=== PATIENT | male | born 1960 | race Caucasian/White ===

== ENCOUNTER 2017-06-25 07:06 | Observation (INO) | payer MEDICARE, SELFPAY ==
[2017-06-25] VITALS (16 sets, daily range): BP systolic 90–188; BP diastolic 54–97; PULSE 57–80; RESP 11–16; TEMP 36.5–36.9; O2SAT 90–97; BMI 29.2; BMI 29.3
--- NOTE | 2017-06-25 07:16 | EKG12_ITS ---
Test Reason : CP Blood Pressure : / mmHG Vent. Rate : 069 BPM Atrial Rate : 069 BPM P-R Int : 146 ms QRS Dur : 142 ms QT Int : 438 ms P-R-T Axes : 151 182 177 degrees QTc Int : 469 ms Suspect arm lead reversal, interpretation assumes no reversal Unusual P axis, possible ectopic atrial rhythm Right bundle branch block Lateral infarct , age undetermined Inferior infarct , age undetermined Abnormal ECG Confirmed by MAX IQBAL, ESPINOZA ([id number]), society editor DANTE CEJA ([id number]) on 06/28/2017 2:00:10 PM Referred By: GRACIELA Confirmed By:ESPINOZA SANTANA MD
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
[2017-06-25 07:31] LABS: Absolute Lymphocyte Count 2.11 X10^3/ul (0.83-4.51); Absolute Neutrophil Count 6.5 X10^3/uL (2.0-7.7); Basophil# 0.02 X10^3/uL; Basophil% 0.2 % (0-1); Eosinophil# 0.09 X10^3/uL; Hematocrit 48.9 % (40-54); Hemoglobin 15.8 g/dl (13.0-16.5); Lymphocyte # 2.11 X10^3/ul (4.0); Lymphocyte % 22.6 % (19-41); Mean Corp Hgb Conc 32.3 g/gl (32-36); Mean Corpuscular Hgb 27.9 pg (27.0-32.0); Mean Corpuscular Volume 86.2 fL (80-94); Mean Platelet Vol. 11.1 fl (6.2-12.0); Monocyte# 0.59 X10^3/uL; Monocyte% 6.3 % (0-10); Neutrophil # 6.51 X10^3/uL (2.7-7.7); Neutrophil % 69.6 % (47-70); POSITIVE COUNT NO; POSITIVE DIFFERENTIAL NO; POSITIVE MORPHOLOGY NO; Platelet Count 189 K/mm3 (150-450); RBC Distribution Width CV 14.3 % (11.6-14.6); RBC Distribution Width SD 44.8 fl (35.1-43.9); Red Blood Count 5.67 M/mm3 (4.6-6.2); White Blood Count 9.4 K/mm3 (4.4-11.0)
[2017-06-25] MEDS: Aspirin 81 MG TAB.CHEW 324 MG PO (07:36)
--- NOTE | 2017-06-25 07:45 | RAD_ITS ---
STUDY: X-RAY CHEST REASON FOR EXAM: Male, 56 years old. Chest pain. TECHNIQUE: Single AP portable view of the chest. COMPARISON: None. FINDINGS: There are monitoring and support devices. There are small metallic densities that may be outside the patient There is elevation of the right hemidiaphragm. There is no focal infiltrate. There is no demonstrated pleural abnormality. Normal size heart. Normal mediastinum and federico. Normal visualized pulmonary arteries. Normal visualized aortic arch and descending thoracic aorta. There are diffuse degenerative changes of the visualized thoracic spine. Normal visualized ribs, clavicles, and shoulders. There is no demonstrated abnormality of the visualized soft tissue structures of the upper abdomen. RAD/Chest 1 View (Portable) IMPRESSION: Degenerative changes, as described above. No demonstrated acute cardiopulmonary process. Electronically Signed: Dario Roland MD at 8:27 EDT , Service support ,
[2017-06-25 07:46] LABS: Anion Gap 9 (5-15); BUN 15 mg/dL (7-18); BUN/Creat Ratio 18.7 RATIO (10-20); Calcium,Total 8.4 mg/dL (8.5-10.1); Chloride 107 mmol/L (98-107); EST Glomerular Filtration Rate 105 mL/min (>60); Est Glom Filt Rate - Afr Amer 127 mL/min (>60); Estimated Creatinine Clearance 108.51 ml/min; Glucose 144 mg/dL (74-106); Potassium 3.8 mmol/L (3.5-5.1); Sodium Level 141 mmol/L (136-145)
[2017-06-25] MEDS: proMETHazine 25 MG/ML Syringe 6.25 MG IV (07:48)
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
[2017-06-25 08:50] LABS: Prothrombin Time (Protime)PT. 13.2 SECONDS (11.7-14.9)
[2017-06-25 08:51] LABS: Partial Thromboplast Time 27.5 Seconds (24.1-36.2)
[2017-06-25] MEDS: Acetaminophen 500 MG Tablet 1000 MG PO (09:31)
[2017-06-25] MEDS: Heparin Injection 5,000 UNITS/ML Syringe 7500 UNITS IV (09:35)
[2017-06-25] MEDS: HEPARIN/D5w 25,000 UNITS 25,000 UNITS/250 ML IV.SOLN. 14 UNITS IV (09:35)
--- NOTE | 2017-06-25 10:09 | ECHOD_ITS ---
Reason For Study: ABN EKG Procedure This was a 2D Doppler, Color Flow transthoracic echocardiogram. Exam performed portable in patient room. Left Ventricle Normal size and thickness. The estimated ejection fraction is 65 %. Stage 1 diastolic dysfunction. No regional wall motion abnormalities noted. Right Ventricle Normal size and thickness. Normal systolic function. Atria Normal left atrium. Normal right atrium. Normal atrial septum. Mitral Valve The mitral valve is structurally normal. No prolapse or stenosis seen. Tricuspid Valve Normal tricuspid valve. Trivial tricuspid valve insufficiency. Right ventricular systolic pressure estimated to be 26 mmHg. Aortic Valve Trisinus/trileaflet aortic valve. Mild diffuse aortic valve thickening. Trivial aortic valve insufficiency. Pulmonic Valve The pulmonic valve is not well visualized. Great Vessels Normal aortic root. Normal arch. Normal inferior vena cava. Inferior vena cava collapse with sniff. Pericardium/Pleural No pericardial effusion. MMode/2D Measurements & Calculations LVIDd: 5.8 cm IVSd: 1.0 cm Ao root diam: 2.9 cm LVIDs: 3.9 cm LVPWd: 1.1 cm LA dimension: 4.0 cm RVDd: 3.3 cm FS: 33.8 % LAV(MOD-bp): 42.8 ml LA A4 area: 16.1 cm2 RA A4 area: 11.4 cm2 LAV(MOD-bp) Indexed: 19.9 ml/m2 LAV(MOD-sp2): 43.5 ml LAV(MOD-sp4): 40.4 ml Doppler Measurements & Calculations MV E max florin: 63.1 cm/sec Lat Peak E' Florin: 7.9 cm/sec Med Peak E' Florin: 7.8 cm/sec MV A max florin: 76.0 cm/sec E/E' lat: 7.9 E/E' med: 8.1 MV E/A: 0.83 Ao V2 max: 120.1 cm/sec LV V1 max: 110.4 cm/sec PA V2 max: 117.6 cm/sec Ao max P.8 mmHg LV V1 max P.9 mmHg TR max florin: 230.7 cm/sec TR max P.3 mmHg Interpretation Summary The estimated ejection fraction is 65 %. Stage 1 diastolic dysfunction. Trivial tricuspid valve insufficiency. Right ventricular systolic pressure estimated to be 26 mmHg. Trivial aortic valve insufficiency. There is no comparison study available. Ordering Physician: Sandeep Taveras Performed By: Kiah Khan, ABBY, RVT
[2017-06-25 10:21] LABS: D-Dimer Quantitative (DVT/PE) 0.34 FEU/ug/m (0.27-0.49)
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
[2017-06-25] MEDS: Metoprolol Tartrate 25 MG Tablet 12.5 MG PO ×2 (11:28→21:36)
[2017-06-25 12:13] LABS: Cholesterol 149 mg/dL (200); High Density Lipoprotein 44 mg/dL; Triglycerides 46 mg/dL; Very Low Density Lipoprotein 9 mg/dL (5-40)
[2017-06-25 15:54] LABS: Partial Thromboplast Time 125.9 Seconds (24.1-36.2)
[2017-06-25] MEDS: Atorvastatin Calcium 40 MG Tablet PO (21:36)
[2017-06-25] MEDS: Heparin Injection (Vial) 5,000 UNIT/ML VIAL IV (21:43)
[2017-06-26] VITALS (13 sets, daily range): BP systolic 135–155; BP diastolic 79–98; PULSE 59–75; RESP 16; TEMP 36.3–36.9; O2SAT 93–97
[2017-06-26 04:04] LABS: Hematocrit 47.3 % (40-54); Hemoglobin 15.1 g/dl (13.0-16.5); Mean Corp Hgb Conc 31.9 g/gl (32-36); Mean Corpuscular Hgb 27.7 pg (27.0-32.0); Mean Corpuscular Volume 86.6 fL (80-94); Mean Platelet Vol. 11.2 fl (6.2-12.0); Platelet Count 183 K/mm3 (150-450); RBC Distribution Width CV 14.7 % (11.6-14.6); RBC Distribution Width SD 46.3 fl (35.1-43.9); Red Blood Count 5.46 M/mm3 (4.6-6.2); White Blood Count 9.7 K/mm3 (4.4-11.0)
[2017-06-26 04:08] LABS: Scan Indicated on CBC? Y/N NO
[2017-06-26 04:13] LABS: Partial Thromboplast Time 70.6 Seconds (24.1-36.2)
[2017-06-26 04:20] LABS: Anion Gap 8 (5-15); BUN 16 mg/dL (7-18); BUN/Creat Ratio 21.2 RATIO (10-20); Calcium,Total 8.2 mg/dL (8.5-10.1); Chloride 111 mmol/L (98-107); Creatinine, Serum 0.76 mg/dL (0.70-1.30); EST Glomerular Filtration Rate 113 mL/min (>60); Est Glom Filt Rate - Afr Amer 136 mL/min (>60); Estimated Creatinine Clearance 114.22 ml/min; Glucose 94 mg/dL (74-106); Sodium Level 143 mmol/L (136-145)
[2017-06-26] MEDS: HEPARIN/D5w 25,000 UNITS 25,000 UNITS/250 ML IV.SOLN. 14 UNITS IV (08:08)
[2017-06-26] MEDS: Aspirin E.C. 81 MG Tablet PO (08:09)
--- NOTE | 2017-06-26 08:10 | NURSING ---
New Heparin bag hung at this time.
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
--- NOTE | 2017-06-26 08:24 | PN_ITS ---
Patient Problems: Active and Suspected Problems Acute chest pain (Acute) Abnormal EKG (Acute) Subjective: Patient is a 56-year-old gentleman who was admitted enzymes. Plan is for patient undergo a nuclear stress test in a.m. to rule out myocardial ischemia. Objective: GENERAL: cooperative HEENT: Clear conjunctiva, NECK; supple, normal thyroid, CHEST: Clear to auscultation bilaterally, HEART: Regular S1 S2, no audible murmurs ABDOMEN: soft, non-tender, normoactive bowel sounds, RECTAL: deferred EXTREMITIES: No edema, no clubbing, no cyanosis. [employer]OTE[employer] INSPECTOR: Awake, alert and oriented to time, place and person, no lateralizing signs. SKIN: Extensive scarring from third-degree moreira Vitals/I&O's: Vital Signs Temp Pulse Resp BP Pulse Ox 98.4 F 70 16 136/79 H 95 06/26/17 03:56 06/26/17 07:08 06/26/17 03:56 06/26/17 03:56 06/26/17 07:25 Oxygen Delivery Method Room Air Weight: 95.4 kg Body Mass Index (BMI) 29.3 Intake and Output for Last 24 Hours 06/24/17 06/25/17 06/26/17 23:59 23:59 23:59 Intake Total 1264.9 / 1264.9 452 / 452 Balance 1264.9 / 1264.9 452 / 452 Laboratory Results 06/25/17 11:30: Troponin I < 0.02 06/25/17 11:30: Triglycerides 46, Cholesterol 149, LDL Cholesterol 96, VLDL Cholesterol 9, HDL Cholesterol 44 06/25/17 15:15: Troponin I < 0.02 06/25/17 15:15: APTT 125.9 H* 06/25/17 20:09: Troponin I < 0.02 06/25/17 21:19: APTT 52.0 H 06/26/17 03:42: WBC 9.7, RBC 5.46, Hgb 15.1, Hct 47.3, MCV 86.6, MCH 27.7, MCHC 31.9 L, RDW 14.7 H, RDW Differential 46.3 H, Plt Count 183, MPV 11.2 06/26/17 03:42: Sodium 143, Potassium 4.0, Chloride 111 H, Carbon Dioxide 24.0, Anion Gap 8, BUN 16, Creatinine 0.76, Estim Creat Clear Calc 114.22, Est GFR ( MDRD) Af Amer 136, Est GFR (MDRD) Non-Af 113, BUN/Creatinine Ratio 21.2 H, Glucose 94, Calcium 8.2 L 06/26/17 03:42: APTT 70.6 H Current Medications Aspirin (Ecotrin) 81 mg PO DAILY@0800 [facility] [place] Last Admin: 06/26/17 08:09 Dose: 81 mg Atorvastatin Calcium (Lipitor) 40 mg PO QHS [facility] [place] Last Admin: 06/25/17 21:36 Dose: 40 mg Heparin Sodium (Porcine) (Heparin Na) 0 unit IV UD PRN PRN Reason: Protocol Last Admin: 06/25/17 21:43 Dose: 1,000 u Magnesium Hydroxide (Milk Of Magnesia) 30 ml PO DAILY PRN PRN Reason: Constipation Metoprolol Tartrate (Lopressor (Beta Cori)) 12.5 mg PO BID [facility] [place] Last Admin: 06/25/17 21:36 Dose: 12.5 mg Nitroglycerin (Nitrostat) 0.4 mg SUBLINGUAL Q5M PRN PRN Reason: CHEST PAIN Sodium Chloride () 5 - 30 ml IV UD PRN PRN Reason: SALINE FLUSH Medical Necessity - Tobacco Use Smoking Status: Never smoker Assessment/Plan Active and Suspected Problems Acute chest pain (Acute) Abnormal EKG (Acute) Patient is a 56 year old gentleman presented with chest pain 1. Chest pain EKG on admission did demonstrate right bundle branch block (d- dimer was negative) and T-wave inversions in the lateral leads. Admitted to monitored bed did order serial cardiac enzymes, 2D echo patient started on heparin consultation placed to cardiology ( Dr Winters). MS was ruled out with serial cardiac enzymes. Heparin initiated on admission discontinued plan is for patient undergo a stress Echo on 06/27/2017 2. Essential hypertension currently not on any medications blood pressure stable on admission 3. 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 DVT prophylaxis on heparin Code Visit OBSV E&M: 49321 Subsequent observation care L3
--- NOTE | 2017-06-26 09:17 | PN.CARD_ITS ---
Subjectve: Patient sitting in a chair, no acute distress. No further chest pain last evening. Telemetry shows normal sinus rhythm. Echocardiogram yesterday showed intact LV function, normal RVSP of 26 mmHg. Objective: Vital Signs Temp Pulse Resp BP Pulse Ox 98.4 F 70 16 136/79 H 95 06/26/17 03:56 06/26/17 07:08 06/26/17 03:56 06/26/17 03:56 06/26/17 07:25 Oxygen Delivery Method Room Air Weight: 210 lb 5.136 oz Body Mass Index (BMI) 29.3 Intake and Output for Last 24 Hours 06/24/17 06/25/17 06/26/17 23:59 23:59 23:59 Intake Total 1264.9 / 1264.9 452 / 452 Balance 1264.9 / 1264.9 452 / 452 General: Awake, Alert, Oriented x 3 HEENT: PERRL, EOMI, Sclera Non Icteric Neck: Supple, Good ROM, No Lymph Node Enlargement Lungs: Clear to auscultation Cardiovascular: Regular Rhythm, Normal S1, Normal S2, No Murmurs, No Rubs, No Gallops Vascular: No Carotid Bruits, Normal Femoral Pulses, Normal Radial Pulses, Normal Dorsalis Pedal Pulse, Normal Posterior Tibial Pulses Abdomen: Bowel Sounds Present, Soft, Non Tender, No HSM, No Organomegaly Extremities: No Cyanosis, No Clubbing, No edema Neurological: No Focal Motor or Sensory Deficit 06/25/17 11:30: Troponin I < 0.02 06/25/17 11:30: Triglycerides 46, Cholesterol 149, LDL Cholesterol 96, VLDL Cholesterol 9, HDL Cholesterol 44 06/25/17 15:15: Troponin I < 0.02 06/25/17 15:15: APTT 125.9 H* 06/25/17 20:09: Troponin I < 0.02 06/25/17 21:19: APTT 52.0 H 06/26/17 03:42: WBC 9.7, RBC 5.46, Hgb 15.1, Hct 47.3, MCV 86.6, MCH 27.7, MCHC 31.9 L, RDW 14.7 H, RDW Differential 46.3 H, Plt Count 183, MPV 11.2 06/26/17 03:42: Sodium 143, Potassium 4.0, Chloride 111 H, Carbon Dioxide 24.0, Anion Gap 8, BUN 16, Creatinine 0.76, Est GFR (MDRD) Af Amer 136, Est GFR (MDRD ) Non-Af 113, BUN/Creatinine Ratio 21.2 H, Glucose 94, Calcium 8.2 L 06/26/17 03:42: APTT 70.6 H Rhythm: EKG: ECHO: Echocardiogram yesterday showed intact LV function, normal RVSP of 26 mmHg. Stress Test: Pending Cardiac Cath: PCI: CT Surgery: Holter monitor: EPS: PPM: CXR: Chest CT Scan: Medical Necessity - Tobacco Use Smoking Status: Never smoker Assessment/Plan 1. Chest pain: The patient has been having substernal chest pressure on and off for the last several years, worse with exertion and improved with rest. This is recently been accelerating over the last 2-3 weeks, finally culminating in 7 out of 10 chest pressure which woke him up from a sound sleep early this morning. 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 Patient is a nondiabetic, non-smoker, unknown cholesterol, and apparently not treated hypertension per the patient. His troponins are negative suggesting that he has had no acute event over the last several weeks. At this point I would recommend the patient continue baby aspirin 81 mg p.o. daily, IV heparin drip to keep his PTT between 50 and 70, and start low-dose Lopressor 12.5 mg p.o. twice daily. His 2D echo yesterday showed normal LV function, normal RVSP. S Since the patient's echocardiogram demonstrates intact LV function and normal pulmonary pressures, I recommend a treadmill echocardiogram to obtain a diagnosis of ischemia prior to diagnostic coronary angiography. Given the patient's constellation of symptoms I would have a low threshold for diagnostic coronary angiogram. 2. Hyperlipidemia: His LDL is 96 and HDL is 44. Recommend initiating Lipitor 40 mill grams p.o. nightly and repeat lipid profile in 6 weeks time. 3. Thank you very much for the opportunity to participate in the cardiac care of your patient. Discussed with Dr. Taveras. Stress echo pending for tomorrow. Code Visit Inpatient E&M: 67672 Subs Hosp L2
[2017-06-26] MEDS: Metoprolol Tartrate 25 MG Tablet 12.5 MG PO ×2 (10:17→21:36)
[2017-06-26] MEDS: Atorvastatin Calcium 40 MG Tablet PO (21:36)
[2017-06-27] VITALS (8 sets, daily range): BP systolic 127–151; BP diastolic 73–92; PULSE 57–87; RESP 16–18; TEMP 36.2–36.7; O2SAT 92–98
[2017-06-27] MEDS: 0.9% NaCl Peripheral Flush Adult/Peds IV (03:32)
[2017-06-27 05:47] LABS: Absolute Lymphocyte Count 1.67 X10^3/ul (0.83-4.51); Absolute Neutrophil Count 5.5 X10^3/uL (2.0-7.7); Basophil# 0.03 X10^3/uL; Basophil% 0.4 % (0-1); Eosinophils% 1.2 % (0-5); Hematocrit 47.8 % (40-54); Hemoglobin 16.1 g/dl (13.0-16.5); Lymphocyte # 1.67 X10^3/ul (4.0); Lymphocyte % 20.3 % (19-41); Mean Corp Hgb Conc 33.7 g/gl (32-36); Mean Corpuscular Hgb 28.6 pg (27.0-32.0); Mean Corpuscular Volume 85.1 fL (80-94); Mean Platelet Vol. 11.4 fl (6.2-12.0); Monocyte# 0.91 X10^3/uL; Monocyte% 11.1 % (0-10); Neutrophil # 5.49 X10^3/uL (2.7-7.7); Neutrophil % 66.6 % (47-70); Platelet Count 206 K/mm3 (150-450); RBC Distribution Width CV 14.7 % (11.6-14.6); RBC Distribution Width SD 45.8 fl (35.1-43.9); Red Blood Count 5.62 M/mm3 (4.6-6.2); White Blood Count 8.2 K/mm3 (4.4-11.0)
[2017-06-27 05:52] LABS: POSITIVE COUNT NO; POSITIVE DIFFERENTIAL NO; POSITIVE MORPHOLOGY NO; Prothrombin Time (Protime)PT. 13.3 SECONDS (11.7-14.9)
[2017-06-27 05:53] LABS: Partial Thromboplast Time 31.5 Seconds (24.1-36.2)
--- NOTE | 2017-06-27 05:55 | EKG12_ITS ---
Test Reason : AM EKG Blood Pressure : / mmHG Vent. Rate : 060 BPM Atrial Rate : 060 BPM P-R Int : 162 ms QRS Dur : 138 ms QT Int : 438 ms P-R-T Axes : 039 031 022 degrees QTc Int : 438 ms Normal sinus rhythm Right bundle branch block Abnormal ECG When compared with ECG of 25-JUN-2017 07:15, MANUAL COMPARISON REQUIRED, DATA IS UNCONFIRMED Confirmed by MAX IQBAL, ESPINOZA ([id number]), editorial director DANTE CEJA ([id number]) on 07/01/2017 3:46:09 PM Referred By: BEBETO Confirmed By:ESPINOZA SANTANA MD
[2017-06-27 06:08] LABS: Anion Gap 5 (5-15); BUN 17 mg/dL (7-18); BUN/Creat Ratio 22.5 RATIO (10-20); Calcium,Total 8.6 mg/dL (8.5-10.1); Chloride 110 mmol/L (98-107); Creatinine, Serum 0.76 mg/dL (0.70-1.30); EST Glomerular Filtration Rate 113 mL/min (>60); Est Glom Filt Rate - Afr Amer 136 mL/min (>60); Estimated Creatinine Clearance 114.22 ml/min; Glucose 95 mg/dL (74-106); Potassium 4.1 mmol/L (3.5-5.1); Sodium Level 142 mmol/L (136-145)
[2017-06-27] MEDS: Aspirin E.C. 81 MG Tablet PO (06:13)
--- NOTE | 2017-06-27 08:00 | STEWCON_ITS ---
Reason For Study: Chest pain Stress Results Protocol: Stress Echocardiogram Maximum Predicted HR: 163 bpm Target HR: 139 bpm% Maximum Pr edicted HR: 88 % DurationHeart Rate Stage (mm:ss) (bpm) BPCom ment BASELINE 67 138/82 States CP a 3 on scale 1-10 before starting JOSE PROTOCOL- STAGE 1 3:00 98 140/82 JOSE PROTOCOL- STAGE 2 3:00 11 3 152/84CP CONTINUES BUT HAS NOT INCREASED, STILL A 3 JOSE PROTOCOL- STAGE 3 3:00 14 4 160/82 RECOVERY 88 126/78 Stress Duration: 9:00 mm:ss Maximum Stress HR: 144 bpm Baseline Echocardiogram Findings The estimated ejection fraction is 65 %. Stress Echo Wall motion Data Resting WMIntermediate WMStress WM Resting Wall Motion Wall Motion Stress No regional wall motion No regional wall motion abnormalities noted. abnormalities noted. EKG Data The baseline ECG demonstrates normal sinus rhythm with at rate of _ beats per minute. The patient exercised according to the regular Jose protocol for a total duration of 9:00. The maximum heart rate attained was 144 beats per minute. This was 88% of maximum predicted heart rate. The patient exercised into stage 4 of the Jose protocol. During stress, there were no ST or T wave changes noted to suggest ischemia. No clinical angina was noted. No arrhythmias noted. Interpretation Summary The estimated ejection fraction is 65 %. Normal adequate treadmill echocardiogram. Negative for ischemia by EKG and echocardiographic criteria. No anginal symptoms noted. No arrhythmias noted. Appropriate blood pressure response to exercise. Average exercise capacity for age. Final LVEF is 75%. Patient arrived with 3 out of 10 substernal chest pain which was atypical for ischemia, which did not worsen during exercise. No complications. Ordering Physician: Solo Winters Referring Physician: Hans Morgan Performed By: Samantha Peoples, ABBY, RVT
--- NOTE | 2017-06-27 09:09 | PN.CARD_ITS ---
Subjectve: Patient doing well this morning, still has atypical nonexertional dull constant 4 out of 10 left-sided chest pain this morning. No worsening last evening. No respiratory changes noted. Telemetry shows normal sinus rhythm, no ventricular arrhythmias. Troponins are negative ?3. Treadmill echo pending. Objective: Vital Signs Temp Pulse Resp BP Pulse Ox 97.2 F L 65 18 151/92 H 98 06/27/17 08:18 06/27/17 08:18 06/27/17 08:18 06/27/17 08:18 06/27/17 08:18 Oxygen Delivery Method Room Air Weight: 210 lb 5.136 oz Body Mass Index (BMI) 29.3 Intake and Output for Last 24 Hours 06/25/17 06/26/17 06/27/17 23:59 23:59 23:59 Intake Total 1264.9 / 1264.9 1300.8 / 1300.8 460 / 460 Output Total 0 / 0 Balance 1264.9 / 1264.9 1300.8 / 1300.8 460 / 460 General: Awake, Alert, Oriented x 3 HEENT: PERRL, EOMI, Sclera Non Icteric Neck: Supple, Good ROM, No Lymph Node Enlargement Lungs: Clear to auscultation Cardiovascular: Regular Rhythm, Normal S1, Normal S2, No Murmurs, No Rubs, No Gallops 06/27/17 05:25: Sodium 142, Potassium 4.1, Chloride 110 H, Carbon Dioxide 27.0, Anion Gap 5, BUN 17, Creatinine 0.76, Est GFR (MDRD) Af Amer 136, Est GFR (MDRD ) Non-Af 113, BUN/Creatinine Ratio 22.5 H, Glucose 95, Calcium 8.6 06/27/17 05:25: WBC 8.2, RBC 5.62, Hgb 16.1, Hct 47.8, MCV 85.1, MCH 28.6, MCHC 33.7, RDW 14.7 H, RDW Differential 45.8 H, Plt Count 206, MPV 11.4, Immature Gran % (Auto) 0.400, Neut % (Auto) 66.6, Lymph % (Auto) 20.3, Pickett % (Auto) 11.1 H, Eos % (Auto) 1.2, Baso % (Auto) 0.4, Absolute Neuts (auto) 5.5, Total Counted Not Reportable 06/27/17 05:25: PT 13.3, INR 1.0, APTT 31.5 Rhythm: EKG: ECHO: Stress Test: Pending Cardiac Cath: PCI: CT Surgery: Holter monitor: EPS: PPM: CXR: Chest CT Scan: Medical Necessity - Tobacco Use Smoking Status: Never smoker Assessment/Plan 1. Chest pain: The patient has been having substernal chest pressure on and off for the last several years, worse with exertion and improved with rest. This is recently been accelerating over the last 2-3 weeks, finally culminating in 7 out of 10 chest pressure which woke him up from a sound sleep early on the day of admission. 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 Patient is a nondiabetic, non-smoker, unknown cholesterol, and apparently not treated hypertension per the patient. His troponins are negative suggesting that he has had no acute event over the last several weeks. Heparin DC'd yesterday. At this point I would recommend the patient continue baby aspirin 81 mg p.o. daily, and start low-dose Lopressor 12.5 mg p.o. twice daily. His 2D echo yesterday showed normal LV function, normal RVSP. Since the patient's echocardiogram demonstrates intact LV function and normal pulmonary pressures, I recommend a treadmill echocardiogram to obtain a diagnosis of ischemia prior to diagnostic coronary angiography. Given the patient's constellation of symptoms I would have a low threshold for diagnostic coronary angiogram. Patient's chest pain this morning appears to be atypical in nature and is consistent with his previous complaints over the last several years. I do not believe it is contraindicated to proceed with stress test at this time. Should the patient require diagnostic coronary angiogram, I would lean towards percutaneous intervention given the patient's scar tissue over his chest which would make wound healing in the event of a CABG somewhat problematic. 2. Hyperlipidemia: His LDL is 96 and HDL is 44. Recommend initiating Lipitor 40 mill grams p.o. nightly and repeat lipid profile in 6 weeks time. 3. Thank you very much for the opportunity to participate in the cardiac care of your patient. Awaiting results of stress test. If stress test is negative for inducible ischemia, the patient may be discharged home. Code Visit Inpatient E&M: 78572 Subs Hosp L2
[2017-06-27] MEDS: Metoprolol Tartrate 25 MG Tablet 12.5 MG PO (10:43)
--- NOTE | 2017-06-27 12:17 | PCM.DC ---
- Discharge Diagnoses Current Active Problems: Current Active and Chronic Problems Acute chest pain (Acute) Abnormal EKG (Acute) Essential (primary) hypertension (Chronic) You will use the following diet at home:: Regular Discharge Activity: Return to Normal Activity Allergies/Adverse Reactions: Allergies No Known Allergies Allergy (Verified 06/25/17 07:07) Medications to take at Discharge No Known/Unobtainable [No Known Home Medications] 11/05/16 Primary Care Physician: Mily Morgan PA [Primary Care Provider] -
--- NOTE | 2017-06-27 12:33 | PCM.DC.SUM ---
Discharge Date and Diagnosis Date of Admission: 06/25/17 Date of Discharge: 06/27/17 - Primary Discharge Diagnosis Active and Suspected Problems Acute chest pain (Acute) Abnormal EKG (Acute) - Secondary Discharge Diagnosis Chronic Problems Essential (primary) hypertension (Chronic) Hospital Course and Treatment Imaging Results: 06/27/17 08:00 Stress Test Echo w/o Contrast [ECHO] Routine Operations: None Procedures: None Summary of Care Provided: Patient is a 56 year old gentleman presented with chest pain. Rule out acute coronary syndrome with negative cardiac enzymes. EKG however showed T-wave inversion in the lateral leads. Dr. Winters of cardiology was consulted. It was recommended that the patient undergo a stress echocardiogram, the patient underwent this test and was negative for ischemia was noted to have a normal ejection fraction~65%. He was discharged home in stable condition. On exam at the time of discharge;; vital signs were stable. He was alert and oriented to time place and person. He did not appear to be any form of distress. S1 and S2 heard no murmur or gallop Lung exam was clear to auscultation with no adventitious sounds. Abdomen was soft nontender with normal bowel sounds. extremity exam did not reveal any edema, palpable pulses bilaterally. Neurologic exam was grossly intact. Discharge Diet: No Restrictions Discharge Activity: Return to Normal Activity Home Medications: Medications to take at Discharge Metoprolol Tartrate [Lopressor (beta dorian)] 25 mg PO BID #60 tab 06/27/17 Following Prescrptions Were Given to Patient: Metoprolol Tartrate [Lopressor (beta dorian)] 25 mg PO BID #60 tab Primary Care Physician: Mily Morgan PA [Primary Care Provider] - Medical Necessity - Tobacco Use Smoking Status: Never smoker Meaningful Use Info Meaningful Use Diagnoses (Choose all that apply): None applicable Code Visit OBSV E&M: 05447 Observation care discharge
== END 2017-06-27 12:27 | disposition home or self-care (01) ==
LOC: ED 08:37 → PCU 08:51
PROVIDERS: Internal Medicine Cardiovascular Disease; Admitting Provider Internal Medicine; Emergency Provider Emergency Medicine; Family Provider Physician Assistant; PCP Physician Assistant; Visit Provider Internal Medicine
DX: R07.89 Other chest pain (principal); R94.31 Abnormal electrocardiogram [ECG] [EKG]; I10 Essential (primary) hypertension; Z82.49 Family history of ischemic heart disease and other diseases of the circulatory system; I45.10 Unspecified right bundle-branch block; E78.5 Hyperlipidemia, unspecified
CPT/HCPCS: 36415; 71045; 80048; 80061; 84484; 85025; 85027; 85379; 85610; 85730; 93005; 93017; 93306; 93350; 96365; 96366; 96375; 96376; 99218; 99251; 99285; J7030; J7040; A4216; G0378; G0463

== ENCOUNTER 2020-05-13 16:46 | Outpatient (RCR) | payer MEDICARE, SELFPAY ==
[2017-06-25 10:10] VITALS: BMI 29.3
[2020-05-13] MEDS: COVID-19 VACC, MRNA(PFIZER)/PF 30 MCG/0.3 ML SYRINGE IM (07:08)
[2020-06-03] MEDS: COVID-19 VACC, MRNA(PFIZER)/PF 30 MCG/0.3 ML SYRINGE IM (07:13)
== END 2020-08-05 23:59 ==
LOC: IMMUN 16:46
PROVIDERS: PCP Physician Assistant; Referring Provider Family Medicine; Visit Provider Family Medicine
DX: Z23 Encounter for immunization (principal)
CPT/HCPCS: 0001A; 0002A; 91300